=== PATIENT | female | born 1975 | race African-American/Black ===

== ENCOUNTER 2016-10-04 23:55 | Emergency (ER) | payer OTHER ==
--- NOTE | ~2016-10-04 | CR72 ---
[facility] A Service of [facility] & [facility] / [facility] RADIOLOGY TEXT RESULTS PATIENT: YOMAIRA MONTANO LOCATION: [facility] : 75 UNIT #: [id number] AGE: [address]: Ijeoma Lynn MD SEX: F ORDER DR: [id number] [facility] [address] [place], [place] [address] [id number] MR#: [id number] Acc #: [id number] NAME: YOMAIRA MONTANO : 1975 SEX: F STUDY DATE/TIME: 10/05/2016 02:13 UNIT: [facility] ROOM: STUDY DESCRIPTION: CR Chest Single View Portable Attending Physician: Ijeoma Lynn M.D. Ordering Physician: Ijeoma Lynn M.D. Primary Care Physician: [facility] MEDICAL IMAGING REPORT This report is preliminary unless electronic signature is present EXAM Portable chest 10/04/2016 at 0213 INDICATION Productive cough for 2 weeks. FINDINGS AP portable chest was obtained. No comparison. Heart is enlarged. Lungs are clear. Vascularity is normal. There is no pneumothorax. IMPRESSION Cardiomegaly. No active disease. Dictated by... Juan Carlos Marcum Jr., M.D. THIS IS AN ELECTRONICALLY VERIFIED REPORT Juan Carlos Marcum Jr., M.D. at 10/05/2016 10:02 PM RAMA/sandra TD: 10/05/2016 08:08 JOB #: [id number] MEDICAL IMAGING REPORT COPY
[2016-10-05 00:17] LABS: INFLUENZA A NEG (NEG); INFLUENZA B NEG (NEG)
== END 2016-10-05 06:10 | disposition home or self-care (01) ==
LOC: CED 23:55
PROVIDERS: Emergency Medicine
DX: J40 Bronchitis, not specified as acute or chronic (principal)
CPT/HCPCS: 71010; 84703; 87651; 87804; 94640; 99283